=== PATIENT | male | born 1960 | race Asian ===

== ENCOUNTER 2018-10-31 14:26 | Emergency (ER) | payer OTHER ==
[~2018-10-31] VITALS: Ht 167.6 cm; Wt 70.8 kg
[2018-10-31] MEDS ORDERED: LISINOPRIL5 MG ORAL (14:36)
[2018-10-31] MEDS ORDERED: LOSARTAN-HCTZ1 EAC2 ORAL (14:37)
[2018-10-31 14:50] VITALS: BP 128/80
--- NOTE | 2018-10-31 14:50 | NUR ---
ED Nurse Note: pt walked in c/o right knee pain since sunday morning with redness and tenderness, discomfort when walking, denies injury. Noted redness, tenderness on right knee, cms intact BLE, no sx injury, will cont monitor.
[2018-10-31] MEDS ORDERED: IBUPROFEN600 MG ORAL (15:50)
--- NOTE | 2018-10-31 15:59 | NUR ---
ED Nurse Note: leon wrap applied per ERMD order, pt cleared to be d/c per ER provider, pt discharge/aftercare instruction provided w/ prescription, pt education done via discussion and handout, pt advised to follow up with pcp or return to ed if sx worsen or new sx develop, pt verbalized understanding and agrees with plan, wrist band removed, pt vss, ambulatory w/ steady gait, all belongings left w. pt.
[2018-10-31 16:00] VITALS: BP 120/79
--- NOTE | 2018-10-31 17:06 | Diagnostic Imaging Report ---
Indication: Right knee pain Technique: 3 views of the right knee Comparison: None Findings: No suprapatellar effusion. No acute fractures. No dislocations. Joint spaces are preserved Impression: Negative
--- NOTE | 2018-10-31 19:22 | Emergency Room Report ---
History of Present Illness General Chief Complaint: Pain Source: Patient Present Illness HPI 57-year-old male presents ED for evaluation. Complaining of right knee pain and swelling. Started 6 days ago. Cannot recall a specific injury. Was seen by PMD today was referred to ED for evaluation. Pain is throbbing, 5 out of 10 , nonradiating. Is able to bear weight. denies fevers or chills. No other aggravating relieving factors. Denies any other associated symptoms Allergies: Coded Allergies: No Known Allergies (Unverified , 10/31/18) Patient History Past Medical History: HTN Past Surgical History: none Pertinent Family History: none Social History: Denies: smoking, alcohol use, drug use Immunizations: UTD Reviewed Nursing Documentation: PMH: Agreed; PSxH: Agreed Nursing Documentation-PMH Past Medical History: No History, Except For Hx Hypertension: Yes Review of Systems All Other Systems: negative except mentioned in HPI Physical Exam Vital Signs Date Time Temp Pulse Resp B/P (MAP) Pulse Ox O2 Delivery O2 Flow Rate FiO2 10/31/18 14:30 98.1 84 17 131/81 99 Room Air Sp02 EP Interpretation: reviewed, normal General Appearance: no apparent distress, alert, GCS 15, non-toxic Head: normocephalic Eyes: bilateral eye normal inspection, bilateral eye PERRL ENT: normal ENT inspection Neck: normal inspection Respiratory: normal inspection Cardiovascular #1: normal inspection Gastrointestinal: normal inspection Rectal: deferred Genitourinary: no CVA tenderness Musculoskeletal: normal range of motion, swelling - R knee Neurologic: alert, oriented x3, responsive, motor strength/tone normal, sensory intact, speech normal Psychiatric: normal inspection Skin: normal inspection Lymphatic: normal inspection Procedures Splinting Splinting : Consent: Verbal Pre-Made Type: GIO wrap Pre-Proc Neuro Vasc Exam: normal Post-Proc Neuro Vasc Exam: normal Patient Tolerated: Well Complications: None Medical Decision Making Diagnostic Impression: Primary Impression: Knee swelling ER Course Hospital Course 57-year-old M presents to ED complaining of R knee pain/swelling Differential diagnoses include: Fracture, dislocation, sprain, contusion Clinical course Patient placed on stretcher. After initial history, physical exam reveals middle-aged male in no acute distress. On exam there is swelling to the right knee. Some erythema noted. No induration. Full range of motion noted. Patient ambulating without difficulty. Discussed findings with patient. Patient was referred here to rule out septic joint". I spoke to PMD Dr. Doyle. I explained that I have very slow suspicion for septic joint. Patient is afebrile. There is full range of motion to the joint. No pain. There is no evidence of an intruding injury. there is no evidence of STD. Patient does document a family history of gout Xrays read shows no acute fracture/dislocation. No effusion. Placed in gio wrap Discussed findings with patient. Consideration for an inflammatory arthritis versus gout. PMD states he already prescribed colchicine for the patient. We' ll prescribe NSAIDs. Patient states he has appointment with orthopedics tomorrow. I do not believe patient requires a arthrocentesis at this time Diagnosis - knee pain Stable and discharged to home with prescription for Motrin. apply ice, keep elevated. weight bear as tolerated. Followup with ortho. Return to ED if symptoms recur or worsen Other X-Ray Diagnostic Results Other X-Ray Diagnostic Results : X-Ray ordered: R knee # of Views/Limited Vs Complete: 3 View Indication: Swelling EP Interpretation: Yes Interpretation: no dislocation, no soft tissue swelling, no fractures Impression: No acute disease Electronically Signed by: Electronically signed by Rodo Bassett MD Last Vital Signs Date Time Temp Pulse Resp B/P (MAP) Pulse Ox O2 Delivery O2 Flow Rate FiO2 10/31/18 16:00 98.1 82 16 120/79 98 Room Air Status: improved Disposition: HOME, SELF-CARE Condition: Stable Scripts Ibuprofen* (MOTRIN*) 600 Mg Tablet 600 MG ORAL Q8H PRN for For Pain, #30 TAB 0 Refills Prov: Rodo Bassett MD 10/31/18 Referrals: Chris Archer MD NON PHYSICIAN (PCP) Sharad Basilio MD Patient Instructions: Gout, [id number] Rodo Bassett MD Oct 31, 2018 19:22
== END 2018-10-31 16:00 | disposition home or self-care (01) ==
LOC: EMR 15:30
DX: M25.461 Effusion, right knee (principal); I10 Essential (primary) hypertension
CPT/HCPCS: 99283